=== PATIENT | male | born 1990 | race Caucasian/White ===

== ENCOUNTER → 2019-04-11 | Outpatient (CLI) | payer MEDICAID ==
--- NOTE | 2019-04-11 13:32 | US ---
EXAMINATION TYPE: US scrotum with doppler. Grayscale and color Doppler Duplex imaging performed of t rick scrotum. DATE OF EXAM: 04/11/2019 COMPARISON: NONE CLINICAL HISTORY: N50.812 Testicular pain. EXAM MEASUREMENTS: TESTICLES: Right Testicle: 4.5 x 2.0 x 2.8 cm Left Testicle: 4.5 x 2.1 x 1.1 cm EPIDIDYMIS HEAD: Right Epididymis: 1.1 cm Left Epididymis: 0.9 cm Doppler performed to assess for testicular vascularity; good bilateral color flow and waveforms are s een. There is no evidence of testicular torsion. Presence of hydroceles: no Presence of varicoceles: no Bilateral calcifications, left greater than right. IMPRESSION: No sonographic evidence of intratesticular mass, testicular torsion, nor epididymoorchiti s. Incidental note of testicular microlithiasis.
== END | disposition home or self-care (01) ==
LOC: RADUSWWP 10:56
PROVIDERS: ATTEND Family Medicine
DX: N50.812 Left testicular pain (principal)
CPT/HCPCS: 76870; 93975